=== PATIENT | female | born 2000 | race African-American/Black ===

== ENCOUNTER 2024-10-28 10:23 | Emergency (ER) | payer OTHER ==
[2024-10-28 13:14] LABS: Glucose, Urine (Dipstick) 50 mg/dL (Negative); Leukocyte Negative (Negative); Protein, Urine (Dipstick) 15 mg/dl (Neg-Trace); Specific Gravity, Urine 1.020 (1.005-1.030)
[2024-10-28 13:27] LABS: Bacteria/HPF Rare-Few HPF (None Seen); CAUTI Indications for Culture Dysuria,urgency,freq; Mucous/LPF 2+ LPF (<2+); RBC/HPF None Seen HPF (0-3); Urine Culture Reflex No No; WBC/HPF 0-3 HPF (0-3)
== END 2024-10-28 13:58 | disposition home or self-care (01) ==
LOC: CSHERS 10:23
DX: R33.9 Retention of urine, unspecified (principal)
CPT/HCPCS: 51701; 81001; 99283